=== PATIENT | male | born 1980 | race Caucasian/White ===

== ENCOUNTER 2017-02-28 18:36 | Inpatient (IN) | payer MEDICAID ==
[~2017-02-28] VITALS: Ht 182.9 cm; Wt 135.0 kg
[2017-02-28 18:59] LABS: DAU SCREEN DISCLAIMER
[2017-02-28] MEDS ORDERED: LOPE1LIQ6 PO (18:59)
[2017-02-28] MEDS ORDERED: SODIUM CHLORIDE 0.9% 1,000ML IVBOLUS ONE ×2 (19:00→20:00)
[2017-02-28] MEDS ORDERED: PLEASE ENTER ALLERGIES MC SCH ×2 (19:00)
[2017-02-28] MEDS ORDERED: PLEASE ENTER HEIGHT AND WEIGHT MC SCH (19:00)
[2017-02-28] MEDS ORDERED: SODIUM CHLORIDE FLUSH 10ML SYR IVF ONE (19:00)
[2017-02-28 19:17] LABS: BLOOD UREA NITROGEN 44 mg/dL (7-18)
[2017-02-28 19:26] LABS: IS PT STATUS REG ER OR PRE ER? YES
[2017-02-28 19:28] LABS: ASPARTATE AMINO TRANSFERASE 575 U/L (15-37)
[2017-02-28 19:29] LABS: ACETAMINOPHEN < 2 mcg/mL (10-30)
[2017-02-28] MEDS ORDERED: CEFTRIAXONE PMX 1GM/50ML 50 ML IVPB ONE (20:00)
[2017-02-28] MEDS ORDERED: ASPIRIN 81 MG TABLET CHEW PO ONE (20:00)
[2017-02-28] MEDS: SODIUM CHLORIDE 0.9% 1,000 ML IV SCH (20:13)
[2017-02-28] MEDS ORDERED: ASPIRIN 81 MG TABLET CHEW ONE (20:18)
[2017-02-28] MEDS ORDERED: ONDANSETRON 2MG/ML, 2ML IVPush PRN (20:30)
[2017-02-28] MEDS ORDERED: HYDROcodone/APAP 5/325 TABLET PO PRN (20:30)
[2017-02-28] MEDS ORDERED: DOCUSATE 100 MG CAPSULE PO PRN (20:30)
[2017-02-28] MEDS ORDERED: POLYETHYLENE GLYCOL 17 GM PACKET PO PRN (20:30)
[2017-02-28] MEDS ORDERED: ACETAMINOPHEN 325 MG TABLET PO PRN (20:30)
[2017-02-28] MEDS ORDERED: CEFTRIAXONE PMX 1GM/50ML 50 ML IV SCH (21:00)
[2017-02-28] MEDS ORDERED: CEFTRIAXONE PMX 1GM/50ML 50 ML ONE (21:09)
[2017-02-28] MEDS: morphine SULFATE 10 MG/ML, 1ML IVPush PRN (22:06)
[2017-02-28] MEDS: NICOTINE 14MG/24 HR PATCH.TD24 TD SCH (22:43)
[2017-02-28] MEDS: HEPARIN 5,000 UNITS/ML, 1ML SQ SCH (22:45)
[2017-02-28 23:19] VITALS: BP 127/67
[2017-03-01] MEDS: LORazepam 1MG TABLET PO PRN ×2 (00:03→06:39)
[2017-03-01 00:17] LABS: IS PT STATUS REG ER OR PRE ER? NO
[2017-03-01 02:03] VITALS: BP 111/68
[2017-03-01] MEDS: morphine SULFATE 10 MG/ML, 1ML IVPush PRN (02:32)
[2017-03-01] MEDS: SODIUM CHLORIDE 0.9% 1,000 ML IV SCH (04:13)
[2017-03-01 05:53] LABS: BLOOD UREA NITROGEN 30 mg/dL (7-18)
[2017-03-01] MEDS ORDERED: ASPIRIN 325 MG TABLET EC PO SCH (06:00)
[2017-03-01 06:21] LABS: IS PT STATUS REG ER OR PRE ER? NO
[2017-03-01 07:46] VITALS: BP 112/72
[2017-03-01] MEDS: HEPARIN 5,000 UNITS/ML, 1ML SQ SCH (08:51)
[2017-03-01] MEDS: NICOTINE 14MG/24 HR PATCH.TD24 TD SCH (08:51)
[2017-03-01] MEDS ORDERED: NICOTINE 21 MG/24 HR PATCH.TD24 TD SCH (10:30)
[2017-03-01] MEDS ORDERED: LORazepam 2 MG/ML, 1ML IVPush PRN (10:30)
[2017-03-01 12:27] VITALS: BP 127/85
== END 2017-03-01 13:24 | disposition left against medical advice (07) | DRG 917 ==
LOC: SUATTDRO 20:10 → ED 20:14 → EDIP 20:15 → 5SO 21:58
PROVIDERS: ADMIT Family Medicine; ATTEND Family Medicine
DX: T43.621A Poisoning by amphetamines, accidental (unintentional), initial encounter (principal); A41.9 Sepsis, unspecified organism; G92 Toxic encephalopathy; N17.0 Acute kidney failure with tubular necrosis; I21.4 Non-ST elevation (NSTEMI) myocardial infarction; M62.82 Rhabdomyolysis; R44.0 Auditory hallucinations; F15.10 Other stimulant abuse, uncomplicated; F17.200 Nicotine dependence, unspecified, uncomplicated; F41.9 Anxiety disorder, unspecified; Y92.89 Other specified places as the place of occurrence of the external cause; Z53.21 Procedure and treatment not carried out due to patient leaving prior to being seen by health care provider; M54.9 Dorsalgia, unspecified
CPT/HCPCS: 36415; 71010; 80048; 80053; 80061; 80307; 80329; 81001; 82550; 83605; 83735; 84100; 84145; 84443; 84484; 85025; 85610; 85730; 86480; 87040; 87086; 93005; 96360; J0696; J1644; G0480; J2060; J2270; J7030